=== PATIENT | female | born 1990 | race Caucasian/White ===

== ENCOUNTER → 2016-06-19 | Outpatient (CLI) | payer BC, OTHER | LOC: MW.CHOBGYN 13:48 | PROVIDERS: ATTEND Obstetrics & Gynecology | DX: Z34.90 Encounter for supervision of normal pregnancy, unspecified, unspecified trimester (principal) | CPT/HCPCS: 80305; 81003; 81025; 87480; 87491; 87510; 87591; 87660; G0145 ==

== ENCOUNTER → 2016-07-17 | Outpatient (CLI) | payer BC, OTHER | LOC: MW.CHOBGYN 08:52 | PROVIDERS: ATTEND Obstetrics & Gynecology | DX: Z34.90 Encounter for supervision of normal pregnancy, unspecified, unspecified trimester (principal) | CPT/HCPCS: 81003 ==

== ENCOUNTER 2017-02-06 19:52 | Inpatient (IN) | payer BC ==
[2017-02-06] MEDS ORDERED: Carboprost Tromethamine 250 MCG/1 ML Amp IM PRN (22:59)
[2017-02-06] MEDS ORDERED: Butorphanol 1 MG/ML SDV IVPUSH PRN (22:59)
[2017-02-06] MEDS ORDERED: Sodium Chloride 0.9% 10 ML Syringe FLUSH PRN (22:59)
[2017-02-06] MEDS ORDERED: Water For Irrigation,Sterile 1,000 ML Container IRR PRN (22:59)
[2017-02-06] MEDS ORDERED: Nalbuphine 10 MG/1 ML Vial IVPUSH PRN (22:59)
[2017-02-06] MEDS ORDERED: Lidocaine 1% 50 ML MDV INJECT PRN (22:59)
[2017-02-06] MEDS ORDERED: Sodium Chloride 0.9% 2.5 ML Syringe FLUSH PRN (22:59)
[2017-02-06] MEDS ORDERED: Misoprostol 200 MCG Tab PO PRN (22:59)
[2017-02-06] MEDS ORDERED: Methylergonovine 0.2 MG/1 ML Amp IM PRN (22:59)
[2017-02-06] MEDS ORDERED: Oxytocin/0.9 % Sodium Chloride 30 UNIT/500 ML BAG IV SCH (23:00)
--- NOTE | 2017-02-07 01:03 | PCM.LDHP ---
L&D History of Present Illness - General Date of Service: 02/07/17 Admit Problem/Dx: Patient Status Order with Admit Dx/Problem 02/06/17 22:59 Patient Status [ADT] Routine Admission Diagnosis/Problem Admission Diagnosis/Problem 02/07/17 00:58 26 yo EDC 02/08/2017 39 6/7wks comes in labor, O+, RI, GBS neg Source of Information: Patient History Limitations: Reports: No Limitations - History of Present Illness Improves with: Reports: None Worsens with: Reports: None Associated Symptoms: Reports: N - Related Data Allergies/Adverse Reactions: Allergies Allergy/AdvReac Type Severity Reaction Status Date / Time No Known Allergies Allergy Verified 05/30/15 09:45 Home Medications: Home Meds . [No Known Home Meds] 05/30/15 [History] Past Medical History - Past Health History Medical/Surgical History: Denies Medical/Surgical History Genitourinary History: Reports: UTI, Recurrent Neurological History: Reports: Migraines - Past Surgical History HEENT Surgical History: Reports: Oral Surgery Other HEENT Surgeries/Procedures: wisdom teeth extracted Social & Family History - Family History Family Medical History: Noncontributory Cardiac: Reports: Hypertension, Pacemaker Respiratory: Reports: Sleep Apnea GI: Reports: Colon Polyps Neurological: Reports: Neuropathy, Diabetic, Neuropathy, Peripheral Psychiatric: Reports: Depression Endocrine/Metabolic: Reports: Diabetes, type II Oncologic: Reports: Liver, Lung, Other (See Below) Other Oncologic Family History: testicular - Tobacco Use Smoking Status *Q: Never Smoker Second Hand Smoke Exposure: No - Caffeine Use Caffeine Use: Reports: Soda - Alcohol Use Days Per Week of Alcohol Use: 2 Number of Drinks Per Day: 6 Total Drinks Per Week: 12 - Recreational Drug Use Recreational Drug Use: No H&P Review of Systems - Review of Systems: Review Of Systems: See Below General: Reports: No Symptoms HEENT: Reports: No Symptoms Pulmonary: Reports: No Symptoms Cardiovascular: Reports: No Symptoms Gastrointestinal: Reports: No Symptoms Genitourinary: Reports: No Symptoms Musculoskeletal: Reports: No Symptoms Skin: Reports: No Symptoms Psychiatric: Reports: No Symptoms Neurological: Reports: No Symptoms Hematologic/Lymphatic: Reports: No Symptoms Immunologic: Reports: No Symptoms L&D Exam - Exam Exam: See Below - Vital Signs Weight: 100.698 kg - Andrew Score Andrew Score Cervix Position: Midposition Andrew Score Consistency: Soft Andrew Score Effacement: >80% Andrew Score Dilation: 3-4 cm Andrew Score Infant's Station: -2 Andrew Score Total: 9 - Exam General: Alert, Oriented, Cooperative HEENT: Hearing Intact Lungs: Normal Respiratory Effort GI/Abdominal Exam: Soft, Non-Tender, No Organomegaly (gravid) Rectal Exam: Deferred Genitourinary: Cervical dilitation Back Exam: Full Range of Motion Extremities: Normal Range of Motion, Non-Tender, No Pedal Edema, Normal Capillary Refill Skin: Warm, Dry, Intact Neurological: Reflexes Equal Bilateral, Normal Speech, Normal Tone Psychiatric: Alert, Normal Affect, Normal Mood - Patient Data Lab Results Last 24 hrs: Laboratory Results - last 24 hr 02/06/17 Range/Units 23:34 WBC 13.92 H (4.0-11.0) K/uL RBC 3.93 L (4.30-5.90) M/uL Hgb 11.6 L (12.0-16.0) g/dL Hct 34.9 L (36.0-46.0) % MCV 88.8 (80.0-98.0) fL MCH 29.5 (27.0-32.0) pg MCHC 33.2 (31.0-37.0) g/dL RDW Std Deviation 45.6 (28.0-62.0) fl RDW Coeff of Teo 14 (11.0-15.0) % Plt Count 244 (150-400) K/uL MPV 10.60 (7.40-12.00) fL Nucleated RBC % 0.0 /100WBC Nucleated RBCs # 0 K/uL Result Diagrams: 02/06/17 23:34 - Problem List (1) Supervision of normal IUP (intrauterine ) in primigravida SNOMED Code(s): 59237299, 967494239, 827677112 ICD Code: Z34.00 - ENCNTR FOR SUPRVSN OF NORMAL FIRST , UNSP TRIMESTER Status: Acute Priority: High Current Visit: Yes Qualifiers: Trimester: third trimester Qualified Code(s): Z34.03 - Encounter for supervision of normal first , third trimester Problem List Initiated/Reviewed/Updated: Yes Orders Last 24hrs: Active Orders 24 hr Category Date Time Status Patient Status [ADT] Routine ADT 02/06/17 22:59 Active Heart Tones [RC] CONTINUOUS Care 02/06/17 22:59 Active Non Stress Test [RC] PER UNIT ROUTINE Care 02/06/17 22:59 Active May Shower [RC] ASDIRECTED Care 02/06/17 22:59 Active Notify Provider [RC] PRN Care 02/06/17 22:59 Active Up ad [place] [RC] ASDIRECTED Care 02/06/17 22:59 Active Vaginal Exam [RC] PRN Care 02/06/17 22:59 Active Vital Signs [RC] PER UNIT ROUTINE Care 02/06/17 22:59 Active Clear Liquid Diet [DIET] Diet 02/06/17 Breakfast Active TYPE AND SCREEN [BBK] Routine Lab 02/06/17 23:34 Received Butorphanol [Stadol] Med 02/06/17 22:59 Active 1 mg IVPUSH Q1H PRN Carboprost Tromethamine [Hemabate DS] Med 02/06/17 22:59 Active 250 mcg IM ASDIRECTED PRN Lactated Ringers [Ringers, Lactated] 1,000 ml Med 02/06/17 23:00 Active IV ASDIRECTED Lidocaine 1% [Xylocaine 1%] Med 02/06/17 22:59 Active 50 ml INJECT .ONCE PRN Methylergonovine [Methergine] Med 02/06/17 22:59 Active 0.2 mg IM ASDIRECTED PRN Misoprostol [Cytotec] Med 02/06/17 22:59 Active 200 mcg PO .ONCE PRN Nalbuphine [Nubain] Med 02/06/17 22:59 Active 10 mg IVPUSH Q1H PRN Oxytocin/0.9 % Sodium Chloride [Oxytocin 30 Unit/500 ML Med 02/06/17 23:00 Active -NS] 30 unit in 500 ml IV TITRATE Sodium Chloride 0.9% [Saline Flush] Med 02/06/17 22:59 Active 10 ml FLUSH ASDIRECTED PRN Sodium Chloride 0.9% [Saline Flush] Med 02/06/17 22:59 Active 2.5 ml FLUSH ASDIRECTED PRN Water For Irrigation,Sterile [Sterile Water for Med 02/06/17 22:59 Active Irrigation] 1,000 ml IRR ASDIRECTED PRN Scalp Electrode [WOMSER] Per Unit Routine Oth 02/06/17 22:59 Ordered Peripheral IV Insertion Adult [OM.PC] Routine Oth 02/06/17 22:59 Ordered Resuscitation Status Routine Resus Stat 02/06/17 22:59 Ordered Medication Orders Butorphanol Tartrate (Stadol) 1 mg IVPUSH Q1H PRN PRN Reason: Pain Carboprost Tromethamine (Hemabate Ds) 250 mcg IM ASDIRECTED PRN PRN Reason: Post Hemorrhage Lactated Ringer's (Ringers, Lactated) 1,000 mls @ 150 mls/hr IV ASDIRECTED CHASITY Oxytocin/Sodium Chloride (Oxytocin 30 Unit/500 Ml-Ns) 30 unit in 500 mls @ 500 mls/hr IV TITRATE CHASITY Lidocaine HCl (Xylocaine 1%) 50 ml INJECT .ONCE PRN PRN Reason: Laceration repair Methylergonovine Maleate (Methergine) 0.2 mg IM ASDIRECTED PRN PRN Reason: Post Hemorrhage Misoprostol (Cytotec) 200 mcg PO .ONCE PRN PRN Reason: Post Hemorrhage Nalbuphine HCl (Nubain) 10 mg IVPUSH Q1H PRN PRN Reason: Pain (severe 7-10) Sodium Chloride (Saline Flush) 10 ml FLUSH ASDIRECTED PRN PRN Reason: Keep Vein Open Sodium Chloride (Saline Flush) 2.5 ml FLUSH ASDIRECTED PRN PRN Reason: Keep Vein Open Sterile Water (Sterile Water For Irrigation) 1,000 ml IRR ASDIRECTED PRN PRN Reason: delivery Assessment/Plan Comment:: Labor A: 26 yo EDC 02/08/2017 39 6/7wks comes in labor, O+, RI, GBS neg P: Admit to L&D, epidural prn, anticipate
[2017-02-07] MEDS ORDERED: Ondansetron 4 MG/2 ML SDV IVPUSH PRN (02:15)
[2017-02-07] MEDS: Lactated Ringers 1,000 ML IV SCH ×3 (02:20→07:37)
[2017-02-07] MEDS ORDERED: fentaNYL 100 MCG/2 ML SDV ONE (02:44)
[2017-02-07] MEDS ORDERED: Ropivacaine 0.2% 2 MG/ML 20 ML SDV ONE (02:45)
[2017-02-07] MEDS ORDERED: Ropivacaine HCl/PF 100 ML ONE (02:45)
--- NOTE | 2017-02-07 03:27 | PCM.SN ---
- Free Text/Narrative Note: consulted for labor epidural placement. pre anesthesia eval and procedure note are documented on the OB anesthesia record. No comps.
[2017-02-07] MEDS ORDERED: Ibuprofen 400 MG Tab PO PRN (12:07)
[2017-02-07] MEDS ORDERED: Witch Hazel Medicated Pads 40/Jar TOP PRN (12:07)
[2017-02-07] MEDS ORDERED: Bisacodyl 10 MG Supp RECTAL PRN (12:07)
[2017-02-07] MEDS ORDERED: Lanolin 100% Cream 7 GM Tube TOP PRN (12:07)
[2017-02-07] MEDS ORDERED: Docusate Sodium 100 MG Cap PO PRN (12:07)
[2017-02-07] MEDS ORDERED: Acetaminophen 500 MG Tab PO PRN ×2 (12:07)
[2017-02-07] MEDS ORDERED: Benzocaine/Menthol 20%-0.5% Spray 78 GM Cannister TOP PRN (12:07)
[2017-02-07] MEDS ORDERED: oxyCODONE 5 MG Tab PO PRN (12:07)
--- NOTE | 2017-02-07 12:44 | OR ---
SURGEON: Deshaun Terry MD DATE OF PROCEDURE: 02/07/2017 Ms. Barbara Tariq is a 26-year-old primigravida. She is followed in our office in this . Primarily, she was seen by me. The patient had no complication. Her GBS status was negative. Her diabetes screen was normal. The patient is admitted early in the day of her admission in active labor. She was 39+ five, and at the time of the admission, she was dilated to 4 cm complete vertex with bulging bag of water. The patient is continued to have adequate contraction on her own at 6-7 cm. The patient had epidural anesthesia for labor analgesia and she has continued to do well without any problem. At 8:30 a.m. this morning, the patient was complete complete, vertex 0 to +1 station. I did an artificial rupture of the membrane then, and it was clear fluid. heart rate was category 1 through the entire process of labor. The patient was labored down and then when she started feeling pressure, she started pushing. After adequate time of pushing, the patient was able to accomplish normal spontaneous vaginal delivery of a female fetus. The score reported to be 8 and 9. The weight is not available. The placenta delivered spontaneous, complete, and intact. There was no need for episiotomy. There is no labial, vaginal, or perineal tear. Estimated blood loss was 250 to 300 mL. There was no complication in this . LISBETH / PALMER /[id number]
--- NOTE | 2017-02-07 15:05 | PCM48HPAN ---
Post Anesthesia Note - EVALUATION WITHIN 48HRS OF ANESTHETIC Vital Signs in Normal Range: Yes Patient Participated in Evaluation: Yes Respiratory Function Stable: Yes Airway Patent: Yes Cardiovascular Function Stable: Yes Hydration Status Stable: Yes Pain Control Satisfactory: Yes Nausea and Vomiting Control Satisfactory: Yes Mental Status Recovered: Yes
[2017-02-07] MEDS: Ibuprofen 800 MG Tab PO PRN (17:44)
[2017-02-08 10:06] VITALS: BP 110/61
--- NOTE | 2017-02-08 10:25 | PCM.DCSUM1 ---
Discharge Summary - Hospital Course Free Text/Narrative:: Discharge home with , follow up in 6 weeks for post or sooner. - Discharge Data Discharge Date: 02/08/17 Discharge Disposition: Home, Self-Care 01 Condition: Good - Discharge Diagnosis/Problem(s) (1) Supervision of normal IUP (intrauterine ) in primigravida SNOMED Code(s): 93421174, 614505274, 211076979 ICD Code: Z34.00 - ENCNTR FOR SUPRVSN OF NORMAL FIRST , UNSP TRIMESTER Status: Acute Priority: High Current Visit: Yes Qualifiers: Trimester: third trimester Qualified Code(s): Z34.03 - Encounter for supervision of normal first , third trimester (2) (normal spontaneous vaginal delivery) SNOMED Code(s): 83091327 ICD Code: O80 - ENCOUNTER FOR FULL-TERM UNCOMPLICATED DELIVERY Status: Acute Priority: High Current Visit: Yes - Patient Instructions Diet: Usual Diet as Tolerated Activity: As Tolerated Driving: May Drive Today Showering/Bathing: May Shower Notify Provider of: Fever, Increased Pain, Drainage, Nausea and/or Vomiting - Discharge Plan Home Medications: Home Meds . [No Known Home Meds] 05/30/15 [History] Referrals: [facility] [Outside] Lizett Roldan CNM [Mid-] - 03/21/17 3:00 pm - General Info Date of Service: 02/08/17 Admission Dx/Problem (Free Text: Patient Status Order with Admit Dx/Problem 02/06/17 22:59 Patient Status [ADT] Routine Admission Diagnosis/Problem Admission Diagnosis/Problem 02/07/17 00:58 26 yo EDC 02/08/2017 39 6/7wks comes in labor, O+, RI, GBS neg Functional Status: Reports: Pain Controlled, Tolerating Diet, Ambulating, Urinating - Review of Systems General: Reports: No Symptoms HEENT: Reports: No Symptoms Pulmonary: Reports: No Symptoms Cardiovascular: Reports: No Symptoms Gastrointestinal: Reports: No Symptoms Genitourinary: Reports: No Symptoms Musculoskeletal: Reports: No Symptoms Skin: Reports: No Symptoms Neurological: Reports: No Symptoms Psychiatric: Reports: No Symptoms - Patient Data Vitals - Most Recent: Last Vital Signs Temp 36.6 C 02/08/17 10:02 Pulse 73 02/08/17 10:02 Resp 18 02/08/17 10:02 BP 110/61 02/08/17 10:02 Pulse Ox 95 02/08/17 10:02 Weight - Most Recent: 100.698 kg Lab Results - Last 24 hrs: Laboratory Results - last 24 hr 02/08/17 Range/Units 06:04 Hgb 10.3 L (12.0-16.0) g/dL Hct 31.2 L (36.0-46.0) % Med Orders - Current: Current Medications Acetaminophen (Tylenol Extra Strength) 500 mg PO Q4H PRN PRN Reason: Pain Acetaminophen (Tylenol Extra Strength) 1,000 mg PO Q4H PRN PRN Reason: Pain Last Admin: 02/08/17 07:40 Dose: 1,000 mg Benzocaine/Menthol (Dermoplast Pain Relief 20%-0.5% [place]) 78 gm TOP ASDIRECTED PRN PRN Reason: Perineal Comfort Measure Last Admin: 02/07/17 15:43 Dose: 1 can Bisacodyl (Dulcolax) 10 mg RECTAL .ONCE PRN PRN Reason: Constipation Butorphanol Tartrate (Stadol) 1 mg IVPUSH Q1H PRN PRN Reason: Pain Carboprost Tromethamine (Hemabate Ds) 250 mcg IM ASDIRECTED PRN PRN Reason: Post Hemorrhage Docusate Sodium (Colace) 100 mg PO BID PRN PRN Reason: Constipation Emollient Ointment (Lansinoh Hpa) 0 gm TOP ASDIRECTED PRN PRN Reason: Sore Nipples Last Admin: 02/07/17 15:42 Dose: 1 tube Lactated Ringer's (Ringers, Lactated) 1,000 mls @ 150 mls/hr IV ASDIRECTED CHASITY Last Admin: 02/07/17 07:37 Dose: 150 mls/hr Oxytocin/Sodium Chloride (Oxytocin 30 Unit/500 Ml-Ns) 30 unit in 500 mls @ 500 mls/hr IV TITRATE CHASITY Last Admin: 02/07/17 12:01 Dose: 500 mls/hr Ibuprofen (Motrin) 400 mg PO Q4H PRN PRN Reason: Pain Ibuprofen (Motrin) 800 mg PO Q6H PRN PRN Reason: Pain Last Admin: 02/07/17 17:44 Dose: 800 mg Lidocaine HCl (Xylocaine 1%) 50 ml INJECT .ONCE PRN PRN Reason: Laceration repair Methylergonovine Maleate (Methergine) 0.2 mg IM ASDIRECTED PRN PRN Reason: Post Hemorrhage Misoprostol (Cytotec) 200 mcg PO .ONCE PRN PRN Reason: Post Hemorrhage Nalbuphine HCl (Nubain) 10 mg IVPUSH Q1H PRN PRN Reason: Pain (severe 7-10) Ondansetron HCl (Zofran) 4 mg IVPUSH Q6H PRN PRN Reason: Nausea/Vomiting Oxycodone HCl (Oxycodone) 5 mg PO Q2H PRN PRN Reason: Pain Sodium Chloride (Saline Flush) 10 ml FLUSH ASDIRECTED PRN PRN Reason: Keep Vein Open Sodium Chloride (Saline Flush) 2.5 ml FLUSH ASDIRECTED PRN PRN Reason: Keep Vein Open Sterile Water (Sterile Water For Irrigation) 1,000 ml IRR ASDIRECTED PRN PRN Reason: delivery Witch Arleen (Tucks) 1 pad TOP ASDIRECTED PRN PRN Reason: comfort care Discontinued Medications Fentanyl (Sublimaze) Confirm Administered Dose 100 mcg .ROUTE .STK-MED ONE Stop: 02/07/17 02:45 Last Admin: 02/07/17 07:57 Dose: Not Given Ropivacaine (Naropin 0.2%) Confirm Administered Dose 100 mls @ as directed .ROUTE .STK-MED ONE Stop: 02/07/17 02:46 Last Admin: 02/07/17 07:58 Dose: Not Given Ropivacaine (Naropin 0.2%) Confirm Administered Dose 20 ml .ROUTE .STK-MED ONE Stop: 02/07/17 02:46 Last Admin: 02/07/17 07:58 Dose: Not Given - Exam General: Reports: Alert, Oriented, Cooperative, No Acute Distress Lungs: Reports: Clear to Auscultation, Normal Respiratory Effort Cardiovascular: Reports: Regular Rate, Regular Rhythm GI/Abdominal Exam: Soft, Non-Tender, No Organomegaly (Female) Exam: Vaginal Bleeding Rectal (Female) Exam: Deferred Back Exam: Reports: Full Range of Motion Extremities: Normal Range of Motion, Non-Tender, No Pedal Edema, Normal Capillary Refill Skin: Reports: Warm, Dry, Intact Wound/Incisions: Reports: Healing Well Neurological: Reports: No New Focal Deficit, Normal Gait, Normal Speech, Normal Tone Psy/Mental Status: Reports: Alert, Normal Affect, Normal Mood *Q Meaningful Use (DIS) - VTE *Q VTE Criteria *Q: - Stroke *Q Stroke Criteria *Q: - AMI *Q AMI Criteria *Q:
[2017-02-08] MEDS: Ibuprofen 800 MG Tab PO PRN (12:56)
== END 2017-02-08 14:40 | disposition home or self-care (01) | DRG 560 ==
LOC: MW.OBCHECK 19:52 → MW.OB 19:54 → MW.OBCHECK 22:59 → MW.OB 22:59 → OBSVTOIN 02-07 12:00 → MW.OB 02-07 17:46
PROVIDERS: ADMIT Obstetrics & Gynecology; ATTEND Obstetrics & Gynecology
PROC: 10E0XZZ Delivery of Products of Conception, External Approach (ICD-10-PCS; principal; 2017-02-07)
PROC: 10907ZC Drainage of Amniotic Fluid, Therapeutic from Products of Conception, Via Natural or Artificial Opening (ICD-10-PCS; 2017-02-07)
DX: O80 Encounter for full-term uncomplicated delivery (principal); Z3A.39 39 weeks gestation of pregnancy; Z37.0 Single live birth
CPT/HCPCS: 01967; 36415; 59025; 59409; 85014; 85018; 85027; 86850; 86900; 86901; A9270-GY; J2590; J2795; J3010; J7120

== ENCOUNTER 2019-01-04 11:54 | Inpatient (IN) | payer BC ==
[2019-01-04] MEDS ORDERED: Sodium Chloride 0.9% 10 ML Syringe FLUSH PRN (21:19)
[2019-01-04] MEDS ORDERED: Tranexamic Acid 1,000 MG in Sodium Chloride 0.9% 100 ML IV PRN (21:19)
[2019-01-04] MEDS ORDERED: Lidocaine 1% 50 ML MDV INJECT PRN (21:19)
[2019-01-04] MEDS ORDERED: Misoprostol 200 MCG Tab PO PRN (21:19)
[2019-01-04] MEDS ORDERED: Carboprost Tromethamine 250 MCG/1 ML Amp IM PRN (21:19)
[2019-01-04] MEDS ORDERED: Terbutaline 1 MG/ML SDV SUBCUT PRN (21:19)
[2019-01-04] MEDS ORDERED: Ondansetron 4 MG/2 ML SDV IVPUSH PRN (21:19)
[2019-01-04] MEDS ORDERED: Sodium Chloride 0.9% 2.5 ML Syringe FLUSH PRN (21:19)
[2019-01-04] MEDS ORDERED: Butorphanol 1 MG/ML SDV IVPUSH PRN (21:19)
[2019-01-04] MEDS ORDERED: Misoprostol 25 MCG (1/4 of 100 MCG) Tab VAG PRN ×2 (21:19)
[2019-01-04] MEDS ORDERED: Water For Irrigation,Sterile 1,000 ML Container IRR PRN (21:19)
[2019-01-04] MEDS ORDERED: Methylergonovine 0.2 MG/1 ML Amp IM PRN (21:19)
[2019-01-04] MEDS ORDERED: Nalbuphine 10 MG/1 ML Vial IVPUSH PRN (21:19)
[2019-01-04] MEDS ORDERED: Sodium Chloride 0.9% 10 ML SDV IV PRN (21:19)
[2019-01-04] MEDS ORDERED: Ampicillin 2 GM in Sodium Chloride 0.9% 100 ML IV ONE (21:19)
[2019-01-04] MEDS ORDERED: Misoprostol 25 MCG (1/4 of 100 MCG) Tab PO ONE (21:27)
[2019-01-04] MEDS ORDERED: Oxytocin/0.9 % Sodium Chloride 30 UNIT/500 ML BAG IV SCH ×2 (21:30)
--- NOTE | 2019-01-04 22:32 | PCM.LDHP ---
L&D History of Present Illness - General Date of Service: 01/04/19 Admit Problem/Dx: Patient Status Order with Admit Dx/Problem 01/04/19 21:20 Patient Status [ADT] Routine Admission Diagnosis/Problem Admission Diagnosis/Problem Source of Information: Patient History Limitations: Reports: No Limitations - History of Present Illness Improves with: Reports: None Worsens with: Reports: None Associated Symptoms: Reports: N - Related Data Allergies/Adverse Reactions: Allergies Allergy/AdvReac Type Severity Reaction Status Date / Time No Known Allergies Allergy Verified 05/30/15 09:45 Home Medications: Home Meds . [No Known Home Meds] 05/30/15 [History] Past Medical History - Past Health History Medical/Surgical History: Denies Medical/Surgical History Genitourinary History: Reports: UTI, Recurrent Neurological History: Reports: Migraines - Past Surgical History Other HEENT Surgeries/Procedures: wisdom teeth extracted Social & Family History - Family History Family Medical History: Noncontributory Cardiac: Reports: Hypertension, Pacemaker Respiratory: Reports: Sleep Apnea GI: Reports: Colon Polyps Neurological: Reports: Neuropathy, Diabetic, Neuropathy, Peripheral Psychiatric: Reports: Depression Endocrine/Metabolic: Reports: Diabetes, type II Oncologic: Reports: Liver, Lung, Other (See Below) Other Oncologic Family History: testicular - Caffeine Use Caffeine Use: Reports: Soda H&P Review of Systems - Review of Systems: Review Of Systems: See Below General: Reports: No Symptoms HEENT: Reports: No Symptoms Pulmonary: Reports: No Symptoms Cardiovascular: Reports: No Symptoms Gastrointestinal: Reports: No Symptoms Genitourinary: Reports: No Symptoms Musculoskeletal: Reports: No Symptoms Skin: Reports: No Symptoms Psychiatric: Reports: No Symptoms Neurological: Reports: No Symptoms Hematologic/Lymphatic: Reports: No Symptoms Immunologic: Reports: No Symptoms L&D Exam - Exam Exam: See Below - Vital Signs Weight: 94.801 kg - OB Specific Contraction Intensity: Mild Movement: Active Heart Tones: Present Presentation: Vertex - Andrew Score Andrew Score Cervix Position: Midposition Andrew Score Consistency: Soft Andrew Score Effacement: 51-70% Andrew Score Dilation: 1-2 cm Andrew Score Infant's Station: -2 Andrew Score Total: 7 - Exam General: Alert, Oriented HEENT: PERRLA, Conjunctiva Clear, EACs Clear, EOMI, Hearing Intact, Mucosa Moist & [place], Nares Patent, Normal Nasal Septum, Posterior Pharynx Clear, TMs Clear Neck: Supple, Trachea Midline Lungs: Clear to Auscultation, Normal Respiratory Effort Cardiovascular: Regular Rate, Regular Rhythm GI/Abdominal Exam: Normal Bowel Sounds, Soft, Non-Tender, No Organomegaly, No Distention, No Abnormal Bruit, No Mass, Pelvis Stable Rectal Exam: Normal Exam, Normal Rectal Tone Genitourinary: Normal external exam, Normal bimanual exam, Normal speculum exam Back Exam: Normal Inspection, Full Range of Motion Extremities: Normal Inspection, Normal Range of Motion, Non-Tender, No Pedal Edema, Normal Capillary Refill Skin: Warm, Dry, Intact Neurological: Cranial Nerves Intact, Reflexes Equal Bilateral Psychiatric: Alert, Normal Affect, Normal Mood - Patient Data Lab Results Last 24 hrs: Laboratory Results - last 24 hr 01/04/19 Range/Units 21:41 WBC 9.87 (4.0-11.0) K/uL RBC 3.47 L (4.30-5.90) M/uL Hgb 10.5 L (12.0-16.0) g/dL Hct 31.8 L (36.0-46.0) % MCV 91.6 (80.0-98.0) fL MCH 30.3 (27.0-32.0) pg MCHC 33.0 (31.0-37.0) g/dL RDW Std Deviation 44.3 (28.0-62.0) fl RDW Coeff of Teo 13 (11.0-15.0) % Plt Count 245 (150-400) K/uL MPV 10.40 (7.40-12.00) fL Nucleated RBC % 0.0 /100WBC Nucleated RBCs # 0 K/uL Result Diagrams: 01/04/19 21:41 Problem List Initiated/Reviewed/Updated: Yes Orders Last 24hrs: Active Orders 24 hr Category Date Time Status Patient Status [ADT] Routine ADT 01/04/19 21:20 Active Bedrest Bathroom Privileges [RC] ASDIRECTED Care 01/04/19 21:20 Active Communication Order [RC] ASDIRECTED Care 01/04/19 21:20 Active Communication Order [RC] ASDIRECTED Care 01/04/19 21:20 Active Communication Order [RC] ASDIRECTED Care 01/04/19 21:20 Active May Shower [RC] ASDIRECTED Care 01/04/19 21:20 Active Notify Provider [RC] PRN Care 01/04/19 21:20 Active Notify Provider [RC] PRN Care 01/04/19 21:20 Active Notify Provider [RC] PRN Care 01/04/19 21:20 Active Notify Provider [RC] STAT Care 01/04/19 21:20 Active Oxygen Therapy [RC] ASDIRECTED Care 01/04/19 21:20 Active Up ad [place] [RC] ASDIRECTED Care 01/04/19 21:20 Active Vital Signs [RC] PER UNIT ROUTINE Care 01/04/19 21:20 Active Vital Signs [RC] PER UNIT ROUTINE Care 01/04/19 21:20 Active Regular Diet [DIET] Diet 01/05/19 Breakfast Active TYPE AND SCREEN [BBK] Routine Lab 01/04/19 21:41 Received Butorphanol [Stadol] Med 01/04/19 21:19 Active 1 mg IVPUSH Q1H PRN Carboprost Tromethamine [Hemabate DS] Med 01/04/19 21:19 Active 250 mcg IM ASDIRECTED PRN Lactated Ringers [Ringers, Lactated] 1,000 ml Med 01/04/19 21:30 Active IV ASDIRECTED Lidocaine 1% [Xylocaine 1%] Med 01/04/19 21:19 Active 50 ml INJECT ONETIME PRN Methylergonovine [Methergine] Med 01/04/19 21:19 Active 0.2 mg IM ASDIRECTED PRN Nalbuphine [Nubain] Med 01/04/19 21:19 Active 10 mg IVPUSH Q1H PRN Ondansetron [Zofran] Med 01/04/19 21:19 Active 4 mg IVPUSH Q6H PRN Oxytocin/0.9 % Sodium Chloride [Oxytocin 30 Unit/500 ML Med 01/04/19 21:30 Active -NS] 30 unit in 500 ml IV TITRATE Oxytocin/0.9 % Sodium Chloride [Oxytocin 30 Unit/500 ML Med 01/04/19 21:30 Active -NS] 30 unit in 500 ml IV TITRATE Sodium Chloride 0.9% [Normal Saline] Med 01/04/19 21:19 Active 10 ml IV ASDIRECTED PRN Sodium Chloride 0.9% [Saline Flush] Med 01/04/19 21:19 Active 10 ml FLUSH ASDIRECTED PRN Sodium Chloride 0.9% [Saline Flush] Med 01/04/19 21:19 Active 2.5 ml FLUSH ASDIRECTED PRN Terbutaline [Brethine] Med 01/04/19 21:19 Active 0.25 mg SUBCUT ASDIRECTED PRN Tranexamic Acid [Cyklokapron] 1,000 mg Med 01/04/19 21:19 Active Sodium Chloride 0.9% [Normal Saline] 100 ml IV ONETIME Water For Irrigation,Sterile [Sterile Water for Med 01/04/19 21:19 Active Irrigation] 1,000 ml IRR ASDIRECTED PRN miSOPROStol [Cytotec] Med 01/04/19 21:19 Active 200 mcg PO ONETIME PRN miSOPROStol [Cytotec] Med 01/04/19 21:19 Active 25 mcg VAG ONETIME PRN miSOPROStol [Cytotec] Med 01/04/19 21:19 Active 25 mcg VAG Q4H PRN Scalp Electrode [WOMSER] Per Unit Routine Oth 01/04/19 21:20 Ordered Medication Administration Instruction [OM.PC] Q3H Oth 01/04/19 21:30 Ordered Peripheral IV Insertion Adult [OM.PC] Routine Oth 01/04/19 21:20 Ordered Resuscitation Status Routine Resus Stat 01/04/19 21:19 Ordered Medication Orders Butorphanol Tartrate (Stadol) 1 mg IVPUSH Q1H PRN PRN Reason: Pain Carboprost Tromethamine (Hemabate Ds) 250 mcg IM ASDIRECTED PRN PRN Reason: Post Hemorrhage Lactated Ringer's (Ringers, Lactated) 1,000 mls @ 150 mls/hr IV ASDIRECTED CHASITY Oxytocin/Sodium Chloride (Oxytocin 30 Unit/500 Ml-Ns) 30 unit in 500 mls @ 999 mls/hr IV TITRATE CHASITY Oxytocin/Sodium Chloride (Oxytocin 30 Unit/500 Ml-Ns) 30 unit in 500 mls @ 2 mls/hr IV TITRATE CHASITY; Protocol Tranexamic Acid 1,000 mg/ (Sodium Chloride) 110 mls @ 660 mls/hr IV ONETIME PRN PRN Reason: Bleeding Lidocaine HCl (Xylocaine 1%) 50 ml INJECT ONETIME PRN PRN Reason: Laceration repair Methylergonovine Maleate (Methergine) 0.2 mg IM ASDIRECTED PRN PRN Reason: Post Hemorrhage Misoprostol (Cytotec) 200 mcg PO ONETIME PRN PRN Reason: Post Hemorrhage Misoprostol (Cytotec) 25 mcg VAG ONETIME PRN PRN Reason: Cervical Ripening Misoprostol (Cytotec) 25 mcg VAG Q4H PRN PRN Reason: Cervical Ripening Nalbuphine HCl (Nubain) 10 mg IVPUSH Q1H PRN PRN Reason: Pain (severe 7-10) Ondansetron HCl (Zofran) 4 mg IVPUSH Q6H PRN PRN Reason: Nausea/Vomiting Sodium Chloride (Saline Flush) 10 ml FLUSH ASDIRECTED PRN PRN Reason: Keep Vein Open Sodium Chloride (Saline Flush) 2.5 ml FLUSH ASDIRECTED PRN PRN Reason: Keep Vein Open Sodium Chloride (Normal Saline) 10 ml IV ASDIRECTED PRN PRN Reason: IV Use Sterile Water (Sterile Water For Irrigation) 1,000 ml IRR ASDIRECTED PRN PRN Reason: delivery Terbutaline Sulfate (Brethine) 0.25 mg SUBCUT ASDIRECTED PRN PRN Reason: Tacysystole Assessment/Plan Comment:: Termpregnancy admitted for elective induction.
[2019-01-04] MEDS: Lactated Ringers 1,000 ML IV SCH (22:33)
[2019-01-05] MEDS: Ampicillin 1 GM in Sodium Chloride 0.9% 50 ML IV SCH ×3 (02:42→11:19)
[2019-01-05] MEDS: Lactated Ringers 1,000 ML IV SCH ×2 (08:55→11:19)
[2019-01-05] MEDS ORDERED: Bupivacaine 0.25% 10 ML SDV ONE (10:50)
[2019-01-05] MEDS ORDERED: fentaNYL 100 MCG/2 ML SDV ONE (10:50)
--- NOTE | 2019-01-05 11:40 | PCM.PREANE ---
Preanesthetic Assessment - Anesthesia/Transfusion/Family Hx Anesthesia History: No Prior Anesthesia Transfusion History: No Prior Transfusion(s) - Review of Systems General: No Symptoms Pulmonary: No Symptoms Cardiovascular: No Symptoms Gastrointestinal: No Symptoms Neurological: No Symptoms Other: Reports: None - Physical Assessment Height: 1.7 m Weight: 94.801 kg ASA Class: 2E Mental Status: Alert & Oriented x3 Airway Class: Mallampati = 2 Dentition: Reports: Normal Dentition ROM/Head Extension: Full Lungs: Clear to Auscultation, Normal Respiratory Effort Cardiovascular: Regular Rate, Regular Rhythm - Lab Values: Laboratory Last Values WBC 9.87 K/uL (4.0-11.0) 01/04/19 21:41 RBC 3.47 M/uL (4.30-5.90) L 01/04/19 21:41 Hgb 10.5 g/dL (12.0-16.0) L 01/04/19 21:41 Hct 31.8 % (36.0-46.0) L 01/04/19 21:41 MCV 91.6 fL (80.0-98.0) 01/04/19 21:41 MCH 30.3 pg (27.0-32.0) 01/04/19 21:41 MCHC 33.0 g/dL (31.0-37.0) 01/04/19 21:41 RDW Std Deviation 44.3 fl (28.0-62.0) 01/04/19 21:41 RDW Coeff of Teo 13 % (11.0-15.0) 01/04/19 21:41 Plt Count 245 K/uL (150-400) 01/04/19 21:41 MPV 10.40 fL (7.40-12.00) 01/04/19 21:41 Nucleated RBC % 0.0 /100WBC 01/04/19 21:41 Nucleated RBCs # 0 K/uL 01/04/19 21:41 Blood Type O POSITIVE 01/04/19 21:41 Antibody Screen NEGATIVE 01/04/19 21:41 - Allergies Allergies/Adverse Reactions: Allergies Allergy/AdvReac Type Severity Reaction Status Date / Time No Known Allergies Allergy Verified 05/30/15 09:45 - Acknowledgements Anesthesia Type Planned: Epidural Pt an Appropriate Candidate for the Planned Anesthesia: Yes Alternatives and Risks of Anesthesia Discussed w Pt/Guardian: Yes Pt/Guardian Understands and Agrees with Anesthesia Plan: Yes PreAnesthesia Questionnaire - Past Health History Medical/Surgical History: Denies Medical/Surgical History Genitourinary History: Reports: UTI, Recurrent P[employer]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 [No Known Home Meds] 05/30/15 [History] - CURRENT (IN HOUSE) MEDS Current Meds: Current Medications Butorphanol Tartrate (Stadol) 1 mg IVPUSH Q1H PRN PRN Reason: Pain Carboprost Tromethamine (Hemabate Ds) 250 mcg IM ASDIRECTED PRN PRN Reason: Post Hemorrhage Lactated Ringer's (Ringers, Lactated) 1,000 mls @ 150 mls/hr IV ASDIRECTED CHASITY Last Admin: 01/05/19 11:19 Dose: 150 mls/hr Oxytocin/Sodium Chloride (Oxytocin 30 Unit/500 Ml-Ns) 30 unit in 500 mls @ 999 mls/hr IV TITRATE CHASITY Oxytocin/Sodium Chloride (Oxytocin 30 Unit/500 Ml-Ns) 30 unit in 500 mls @ 2 mls/hr IV TITRATE CHASITY; Protocol Last Titration: 01/05/19 09:39 Dose: 8 munits/min, 8 mls/hr Tranexamic Acid 1,000 mg/ (Sodium Chloride) 110 mls @ 660 mls/hr IV ONETIME PRN PRN Reason: Bleeding Ampicillin Sodium 1 gm/ Sodium (Chloride) 50 mls @ 100 mls/hr IV Q4H CHASITY Last Admin: 01/05/19 11:19 Dose: 100 mls/hr Lidocaine HCl (Xylocaine 1%) 50 ml INJECT ONETIME PRN PRN Reason: Laceration repair Methylergonovine Maleate (Methergine) 0.2 mg IM ASDIRECTED PRN PRN Reason: Post Hemorrhage Misoprostol (Cytotec) 200 mcg PO ONETIME PRN PRN Reason: Post Hemorrhage Misoprostol (Cytotec) 25 mcg VAG ONETIME PRN PRN Reason: Cervical Ripening Last Admin: 01/04/19 22:34 Dose: 25 mcg Misoprostol (Cytotec) 25 mcg VAG Q4H PRN PRN Reason: Cervical Ripening Nalbuphine HCl (Nubain) 10 mg IVPUSH Q1H PRN PRN Reason: Pain (severe 7-10) Ondansetron HCl (Zofran) 4 mg IVPUSH Q6H PRN PRN Reason: Nausea/Vomiting Sodium Chloride (Saline Flush) 10 ml FLUSH ASDIRECTED PRN PRN Reason: Keep Vein Open Sodium Chloride (Saline Flush) 2.5 ml FLUSH ASDIRECTED PRN PRN Reason: Keep Vein Open Sodium Chloride (Normal Saline) 10 ml IV ASDIRECTED PRN PRN Reason: IV Use Sterile Water (Sterile Water For Irrigation) 1,000 ml IRR ASDIRECTED PRN PRN Reason: delivery Terbutaline Sulfate (Brethine) 0.25 mg SUBCUT ASDIRECTED PRN PRN Reason: Tacysystole Discontinued Medications Bupivacaine HCl (Sensorcaine-Mpf 0.25%) Confirm Administered Dose 10 ml .ROUTE .STK-MED ONE Stop: 01/05/19 10:51 Fentanyl (Sublimaze) Confirm Administered Dose 100 mcg .ROUTE .STK-MED ONE Stop: 01/05/19 10:51 Ampicillin Sodium 2 gm/ Sodium (Chloride) 100 mls @ 200 mls/hr IV ONETIME ONE Stop: 01/04/19 21:48 Last Admin: 01/04/19 22:33 Dose: 200 mls/hr Fentanyl/Bupivacaine HCl (Shqiikqn-Xlzot-Qn 2 Mcg/Ml-0.125%) Confirm Administered Dose 100 mls @ as directed .ROUTE .STK-MED ONE Stop: 01/05/19 10:51 Misoprostol (Cytotec) 25 mcg PO ONETIME ONE Stop: 01/04/19 21:28 Last Admin: 01/04/19 22:34 Dose: 25 mcg
[2019-01-05] MEDS ORDERED: Acetaminophen 500 MG Tab PO PRN ×2 (11:53)
[2019-01-05] MEDS ORDERED: Benzocaine/Menthol 20%-0.5% Spray 78 GM Cannister TOP PRN (11:53)
[2019-01-05] MEDS ORDERED: Lanolin 100% Cream 7 GM Tube TOP PRN (11:53)
[2019-01-05] MEDS ORDERED: Bisacodyl 10 MG Supp RECTAL PRN (11:53)
[2019-01-05] MEDS ORDERED: Ibuprofen 400 MG Tab PO PRN (11:53)
[2019-01-05] MEDS ORDERED: oxyCODONE 5 MG Tab PO PRN (11:53)
[2019-01-05] MEDS ORDERED: Witch Hazel Medicated Pads 40/Jar TOP PRN (11:53)
[2019-01-05] MEDS ORDERED: Docusate Sodium 100 MG Cap PO PRN (11:53)
--- NOTE | 2019-01-05 14:20 | OR ---
SURGEON: Deshaun Terry MD DATE OF PROCEDURE: Ms. Barbara Tariq is a 28-year-old patient. She is para 1-0-0-1. She is followed in our practice primarily by me. She had uncomplicated care. However, her GBS status was positive. The patient admitted for elective induction. She was induced with Cytotec and Pitocin. She started on antibiotic according to the protocol for her GBS status. She had epidural anesthesia for labor analgesia. She had spontaneous rupture of the membrane with a clear fluid at 9:30 this morning. The patient then progressed without any problem, and she was able to accomplish normal spontaneous vaginal delivery of a female fetus, cried immediately. score reported to be 8 and 9. The weight is not available. The placenta delivered spontaneous, complete, and intact. There was no laceration. Episiotomy was not needed. There was no cervical, vaginal, or labial laceration. Estimated blood loss was 300 to 350 mL. heart rate was category 1 through the entire process of labor and delivery. There was no complication in the labor and the delivery process. LISBETH / PALMER /[id number]
[2019-01-05] MEDS: Ibuprofen 800 MG Tab PO PRN (16:20)
[2019-01-06] MEDS: Ibuprofen 800 MG Tab PO PRN ×2 (03:43→09:17)
--- NOTE | 2019-01-06 08:05 | PCM48HPAN ---
Post Anesthesia Note - EVALUATION WITHIN 48HRS OF ANESTHETIC Vital Signs in Normal Range: Yes Patient Participated in Evaluation: Yes Respiratory Function Stable: Yes Airway Patent: Yes Cardiovascular Function Stable: Yes Hydration Status Stable: Yes Pain Control Satisfactory: Yes Nausea and Vomiting Control Satisfactory: Yes Mental Status Recovered: Yes Vital Signs: Last Vital Signs Temp 36.2 C 01/06/19 04:09 Pulse 65 01/06/19 04:09 Resp 17 01/06/19 04:09 BP 107/65 01/06/19 04:09 Pulse Ox 96 01/06/19 04:09
[2019-01-06 08:27] VITALS: BP 113/66; PULSE 73
--- NOTE | 2019-01-06 08:49 | PCM.PNPP ---
- General Info Date of Service: 01/06/19 Functional Status: Reports: Pain Controlled - Review of Systems General: Reports: No Symptoms HEENT: Reports: No Symptoms Pulmonary: Reports: No Symptoms Cardiovascular: Reports: No Symptoms Gastrointestinal: Reports: No Symptoms Genitourinary: Reports: No Symptoms Musculoskeletal: Reports: No Symptoms Skin: Reports: No Symptoms Neurological: Reports: No Symptoms Psychiatric: Reports: No Symptoms - General Info Date of Service: 01/06/19 - Patient Data Vital Signs - Most Recent: Last Vital Signs Temp 36.2 C 01/06/19 07:50 Pulse 73 01/06/19 07:50 Resp 16 01/06/19 07:50 BP 113/66 01/06/19 07:50 Pulse Ox 97 01/06/19 07:50 Weight - Most Recent: 94.801 kg Lab Results - Last 24 Hours: Laboratory Results - last 24 hr 01/06/19 Range/Units 06:15 Hgb 10.9 L (12.0-16.0) g/dL Hct 34.0 L (36.0-46.0) % Med Orders - Current: Current Medications Acetaminophen (Tylenol Extra Strength) 500 mg PO Q4H PRN PRN Reason: Pain Acetaminophen (Tylenol Extra Strength) 1,000 mg PO Q4H PRN PRN Reason: Pain Benzocaine/Menthol (Dermoplast Pain Relief 20%-0.5% [place]) 78 gm TOP ASDIRECTED PRN PRN Reason: Perineal Comfort Measure Bisacodyl (Dulcolax) 10 mg RECTAL ONETIME PRN PRN Reason: Constipation Butorphanol Tartrate (Stadol) 1 mg IVPUSH Q1H PRN PRN Reason: Pain Carboprost Tromethamine (Hemabate Ds) 250 mcg IM ASDIRECTED PRN PRN Reason: Post Hemorrhage Docusate Sodium (Colace) 100 mg PO BID PRN PRN Reason: Constipation Emollient Ointment (Lansinoh Hpa) 0 gm TOP ASDIRECTED PRN PRN Reason: Sore Nipples Lactated Ringer's (Ringers, Lactated) 1,000 mls @ 150 mls/hr IV ASDIRECTED CHASITY Last Admin: 01/05/19 11:19 Dose: 150 mls/hr Oxytocin/Sodium Chloride (Oxytocin 30 Unit/500 Ml-Ns) 30 unit in 500 mls @ 999 mls/hr IV TITRATE CHASITY Oxytocin/Sodium Chloride (Oxytocin 30 Unit/500 Ml-Ns) 30 unit in 500 mls @ 2 mls/hr IV TITRATE [facility]; Protocol Last Titration: 01/05/19 09:39 Dose: 8 munits/min, 8 mls/hr Tranexamic Acid 1,000 mg/ (Sodium Chloride) 110 mls @ 660 mls/hr IV ONETIME PRN PRN Reason: Bleeding Ampicillin Sodium 1 gm/ Sodium (Chloride) 50 mls @ 100 mls/hr IV Q4H CHASITY Last Admin: 01/05/19 11:19 Dose: 100 mls/hr Ibuprofen (Motrin) 400 mg PO Q4H PRN PRN Reason: Pain Ibuprofen (Motrin) 800 mg PO Q6H PRN PRN Reason: Pain Last Admin: 01/06/19 03:43 Dose: 800 mg Lidocaine HCl (Xylocaine 1%) 50 ml INJECT ONETIME PRN PRN Reason: Laceration repair Methylergonovine Maleate (Methergine) 0.2 mg IM ASDIRECTED PRN PRN Reason: Post Hemorrhage Misoprostol (Cytotec) 200 mcg PO ONETIME PRN PRN Reason: Post Hemorrhage Misoprostol (Cytotec) 25 mcg VAG ONETIME PRN PRN Reason: Cervical Ripening Last Admin: 01/04/19 22:34 Dose: 25 mcg Misoprostol (Cytotec) 25 mcg VAG Q4H PRN PRN Reason: Cervical Ripening Nalbuphine HCl (Nubain) 10 mg IVPUSH Q1H PRN PRN Reason: Pain (severe 7-10) Ondansetron HCl (Zofran) 4 mg IVPUSH Q6H PRN PRN Reason: Nausea/Vomiting Oxycodone HCl (Oxycodone) 5 mg PO Q2H PRN PRN Reason: Pain Sodium Chloride (Saline Flush) 10 ml FLUSH ASDIRECTED PRN PRN Reason: Keep Vein Open Sodium Chloride (Saline Flush) 2.5 ml FLUSH ASDIRECTED PRN PRN Reason: Keep Vein Open Sodium Chloride (Normal Saline) 10 ml IV ASDIRECTED PRN PRN Reason: IV Use Sterile Water (Sterile Water For Irrigation) 1,000 ml IRR ASDIRECTED PRN PRN Reason: delivery Terbutaline Sulfate (Brethine) 0.25 mg SUBCUT ASDIRECTED PRN PRN Reason: Tacysystole Ildefonso Bacon (Tucks) 1 pad TOP ASDIRECTED PRN PRN Reason: comfort care Discontinued Medications Bupivacaine HCl (Sensorcaine-Mpf 0.25%) Confirm Administered Dose 10 ml .ROUTE .STK-MED ONE Stop: 01/05/19 10:51 Fentanyl (Sublimaze) Confirm Administered Dose 100 mcg .ROUTE .STK-MED ONE Stop: 01/05/19 10:51 Ampicillin Sodium 2 gm/ Sodium (Chloride) 100 mls @ 200 mls/hr IV ONETIME ONE Stop: 01/04/19 21:48 Last Admin: 01/04/19 22:33 Dose: 200 mls/hr Fentanyl/Bupivacaine HCl (Vllrjuan-Wapaz-Za 2 Mcg/Ml-0.125%) Confirm Administered Dose 100 mls @ as directed .ROUTE .STK-MED ONE Stop: 01/05/19 10:51 Misoprostol (Cytotec) 25 mcg PO ONETIME ONE Stop: 01/04/19 21:28 Last Admin: 01/04/19 22:34 Dose: 25 mcg - Interaction Disposition, : in Room with Family Interaction: Holding Infant Infant Feeding: Attempted ; Nursed Fair/Poor Support Person: - Recovery Exam Fundal Tone: Firm Fundal Level: 1 Fingerbreadths Below Umbilicus Fundal Placement: Midline Lochia Amount: Scant Lochia Color: Rubra/Red Perineum Description: Intact, Minimal Bruising/Swelling Episiotomy/Laceration: None Bladder Status: Voiding Urinary Elimination: Voided - Exam General: Alert, Oriented HEENT: Pupils Equal Neck: Supple Lungs: Clear to Auscultation, Normal Respiratory Effort Cardiovascular: Regular Rate, Regular Rhythm GI/Abdominal Exam: Normal Bowel Sounds, Soft, Non-Tender, No Organomegaly, No Distention, No Abnormal Bruit, No Mass, Pelvis Stable Extremities: Normal Inspection, Normal Range of Motion, Non-Tender, No Pedal Edema, Normal Capillary Refill Skin: Warm, Dry, Intact Wound/Incisions: Healing Well Neurological: No New Focal Deficit Psy/Mental Status: Alert, Normal Affect, Normal Mood - Problem List Review Problem List Initiated/Reviewed/Updated: Yes - My Orders Last 24 Hours: My Active Orders 01/05/19 11:53 Acetaminophen [Tylenol Extra Strength] 1,000 mg PO Q4H PRN Acetaminophen [Tylenol Extra Strength] 500 mg PO Q4H PRN Benzocaine/Menthol [Dermoplast Pain Relief 20%-0.5% [place]] 78 gm TOP ASDIRECTED PRN Bisacodyl [Dulcolax] 10 mg RECTAL ONETIME PRN Docusate Sodium [Colace] 100 mg PO BID PRN Ibuprofen [Motrin] 400 mg PO Q4H PRN Ibuprofen [Motrin] 800 mg PO Q6H PRN Lanolin [Lansinoh HPA] See Dose Instructions TOP ASDIRECTED PRN Witch Arleen [Tucks] 1 pad TOP ASDIRECTED PRN oxyCODONE 5 mg PO Q2H PRN 01/05/19 11:54 Patient Status [ADT] Routine May Shower [RC] ASDIRECTED Up ad [place] [RC] ASDIRECTED Vital Signs [RC] PER UNIT ROUTINE Assess Lochia [WOMSER] Per Unit Routine Assess Uterine Involution [WOMSER] Per Unit Routine Peripheral IV Discontinue [OM.PC] Routine - Assessment Assessment:: S/P doing well. - Plan Plan:: Termpregnancy admitted for elective induction.
== END 2019-01-06 14:00 | disposition home or self-care (01) | DRG 560 ==
LOC: MW.OB 11:54 → OBSVTOIN 01-05 11:54 → MW.OB 01-05 15:14
PROVIDERS: ADMIT Obstetrics & Gynecology; ATTEND Obstetrics & Gynecology
PROC: 10E0XZZ Delivery of Products of Conception, External Approach (ICD-10-PCS; principal; 2019-01-05)
PROC: 3E033VJ Introduction of Other Hormone into Peripheral Vein, Percutaneous Approach (ICD-10-PCS; 2019-01-05)
PROC: 3E0R3BZ Introduction of Anesthetic Agent into Spinal Canal, Percutaneous Approach (ICD-10-PCS; 2019-01-05)
DX: O48.0 Post-term pregnancy (principal); O99.824 Streptococcus B carrier state complicating childbirth; Z37.0 Single live birth; Z3A.40 40 weeks gestation of pregnancy
CPT/HCPCS: 36415; 59025; 59409; 85014; 85018; 85027; 86850; 86900; 86901; A9270-GY; J0290; J2590; J3010; J3490; J7030; J7050; J7120

== ENCOUNTER 2021-07-27 05:18 | Inpatient (IN) | payer BC ==
[2021-07-27] MEDS ORDERED: Ondansetron 4 MG/2 ML SDV IVPUSH PRN (05:27)
[2021-07-27] MEDS ORDERED: Lidocaine 1% 50 ML MDV INJECT PRN (05:27)
[2021-07-27] MEDS ORDERED: Water For Irrigation,Sterile 1,000 ML Container IRR PRN (05:27)
[2021-07-27] MEDS ORDERED: Sodium Chloride 0.9% 10 ML Syringe FLUSH PRN (05:27)
[2021-07-27] MEDS ORDERED: Methylergonovine 0.2 MG/1 ML Amp IM PRN (05:27)
[2021-07-27] MEDS ORDERED: Misoprostol 25 MCG (1/4 of 100 MCG) Tab VAG PRN (05:27)
[2021-07-27] MEDS ORDERED: Tranexamic Acid 1,000 MG in Sodium Chloride 0.9% 100 ML IV PRN (05:27)
[2021-07-27] MEDS ORDERED: Misoprostol 25 MCG (1/4 of 100 MCG) Tab PO PRN (05:27)
[2021-07-27] MEDS ORDERED: Sodium Chloride 0.9% 20 ML SDV IV PRN (05:27)
[2021-07-27] MEDS ORDERED: Carboprost Tromethamine 250 MCG/1 ML Amp IM PRN (05:27)
[2021-07-27] MEDS ORDERED: Sodium Chloride 0.9% 2.5 ML Syringe FLUSH PRN (05:27)
[2021-07-27] MEDS ORDERED: Terbutaline 1 MG/ML SDV SUBCUT PRN (05:27)
[2021-07-27] MEDS ORDERED: Butorphanol 1 MG/ML SDV IVPUSH PRN (05:27)
[2021-07-27] MEDS ORDERED: Misoprostol 200 MCG Tab PO PRN (05:27)
[2021-07-27] MEDS ORDERED: Oxytocin/0.9 % Sodium Chloride 30 UNIT/500 ML BAG IV SCH ×2 (05:30)
[2021-07-27] MEDS ORDERED: Lactated Ringers 1,000 ML IV SCH (05:30)
[2021-07-27] MEDS ORDERED: ePHEDrine 50 MG/ML SDV IVPUSH PRN ×2 (08:14)
[2021-07-27] MEDS ORDERED: Ropivacaine HCl/PF 200 MG in Premix Bag 1 BAG EPIDUR SCH (08:15)
[2021-07-27] MEDS ORDERED: Bisacodyl 10 MG Supp RECTAL PRN (12:59)
[2021-07-27] MEDS ORDERED: oxyCODONE 5 MG Tab PO PRN (12:59)
[2021-07-27] MEDS ORDERED: Docusate Sodium 100 MG Cap PO PRN (12:59)
[2021-07-27] MEDS ORDERED: Ibuprofen 400 MG Tab PO PRN (12:59)
[2021-07-27] MEDS ORDERED: Acetaminophen 500 MG Tab PO PRN ×2 (12:59)
[2021-07-27] MEDS ORDERED: Benzocaine/Menthol 20%-0.5% Spray 78 GM Cannister TOP PRN (12:59)
[2021-07-27] MEDS ORDERED: Witch Hazel Medicated Pads 40/Jar TOP PRN (12:59)
[2021-07-27] MEDS ORDERED: Ibuprofen 800 MG Tab PO PRN (12:59)
[2021-07-27] MEDS ORDERED: Lanolin 100% Cream 7 GM Tube TOP PRN (12:59)
[2021-07-29 08:20] VITALS: BP 116/70; PULSE 72
== END 2021-07-29 12:00 | disposition home or self-care (01) | DRG 560 ==
LOC: MW.OBCHECK 05:18 → MW.OB 05:20 → MW.OBCHECK 05:27 → OBSVTOIN 12:39 → MW.OB 15:27
PROVIDERS: ADMIT Obstetrics & Gynecology; ATTEND Obstetrics & Gynecology
PROC: 10E0XZZ Delivery of Products of Conception, External Approach (ICD-10-PCS; principal; 2021-07-27)
PROC: 10907ZC Drainage of Amniotic Fluid, Therapeutic from Products of Conception, Via Natural or Artificial Opening (ICD-10-PCS; 2021-07-27)
PROC: 3E033VJ Introduction of Other Hormone into Peripheral Vein, Percutaneous Approach (ICD-10-PCS; 2021-07-27)
DX: O48.0 Post-term pregnancy (principal); Z37.0 Single live birth; Z3A.42 42 weeks gestation of pregnancy; Z20.822 Contact with and (suspected) exposure to COVID-19
CPT/HCPCS: 36415; 59025; 59409; 85014; 85018; 85027; 86592; 86850; 86900; 86901; A9270-GY; J2590; J7120; U0002